=== PATIENT | male | born 1950 | race Two or more races ===

== ENCOUNTER 2022-07-02 11:30 | Inpatient (IN) | payer OTHER ==
[~2022-07-02] VITALS: Ht 172.7 cm; Wt 68.0 kg
[2022-07-02] MEDS ORDERED: METFORMIN HCL500 M3 PO (14:48)
[2022-07-02] MEDS ORDERED: GLIMEPIRIDE2 MG (14:49)
[2022-07-02] MEDS ORDERED: LEVO-T25 MCG PO (14:49)
[2022-07-07] MEDS ORDERED: MAXIMUM D3325 MCG (10:10)
[2022-07-07] MEDS ORDERED: OFLOXACIN5 ML (10:10)
[2022-07-07] MEDS ORDERED: SIMVASTATIN20 MG (10:10)
[2022-07-07] MEDS ORDERED: PREDNISOLONE ACE5 ML (10:10)
[2022-07-09] MEDS ORDERED: ULTRACET PO (08:21)
[2022-07-09] MEDS ORDERED: AMOX1TAB5 PO (08:22)
== END 2022-07-09 10:50 | disposition home or self-care (01) | DRG 334 ==
LOC: O/R 07-07 05:30 → SURH 07-07 05:30 → SURG 07-07 07:00 → SURH 07-07 10:11 → EDBD 07-07 11:30 → SURG 07-07 11:30 → SURH 07-09 10:50
PROVIDERS: ADMIT Surgery; ATTEND Surgery
PROC: 0DTP8ZZ Resection of Rectum, Via Natural or Artificial Opening Endoscopic (ICD-10-PCS; principal; 2022-07-07 07:00)
DX: C21.8 Malignant neoplasm of overlapping sites of rectum, anus and anal canal (principal); R19.4 Change in bowel habit; R19.5 Other fecal abnormalities; E11.9 Type 2 diabetes mellitus without complications

== ENCOUNTER 2022-08-11 05:21 | Day surgery (SDC) | payer OTHER ==
[~2022-08-11] VITALS: Ht 172.7 cm; Wt 67.1 kg
[~2022-08-11 05:21] MED LIST: AMOX1TAB5 PO; GLIMEPIRIDE2 MG; LEVO-T25 MCG PO; MAXIMUM D3325 MCG; METFORMIN HCL500 M3 PO; OFLOXACIN5 ML; PREDNISOLONE ACE5 ML; SIMVASTATIN20 MG; ULTRACET PO
[2022-08-11] MEDS ORDERED: ULTRACET PO (08:11)
== END 2022-08-11 10:40 | disposition home or self-care (01) ==
LOC: CIR.AMB 05:21
PROVIDERS: ATTEND Surgery
DX: C20 Malignant neoplasm of rectum (principal); K62.89 Other specified diseases of anus and rectum; Z20.822 Contact with and (suspected) exposure to COVID-19; E03.9 Hypothyroidism, unspecified; E11.9 Type 2 diabetes mellitus without complications; Z79.84 Long term (current) use of oral hypoglycemic drugs

== ENCOUNTER → 2023-09-10 06:00 | Outpatient (CLI) | payer OTHER ==
[~2023-09-10] VITALS: Ht 172.7 cm; Wt 67.1 kg
[2023-09-10 17:24] LABS: COL EPI 114 SECONDS (82-175)
== END | disposition home or self-care (01) ==
LOC: LAB 06:00 → EDSTATUS 09-21 09:30 → SURH 09-21 09:30
PROVIDERS: ATTEND Surgery
DX: Z01.812 Encounter for preprocedural laboratory examination (principal); R19.4 Change in bowel habit; R19.5 Other fecal abnormalities; D37.6 Neoplasm of uncertain behavior of liver, gallbladder and bile ducts; D12.8 Benign neoplasm of rectum; C20 Malignant neoplasm of rectum